=== PATIENT | male | born 1960 | race Caucasian/White ===

== ENCOUNTER 2018-04-11 22:28 | Inpatient (IN) | payer OTHER ==
[~2018-04-11] VITALS: Ht 170.2 cm; Wt 73.4 kg
[2018-04-11 22:51] VITALS: BP 139/99
[2018-04-11] MEDS ORDERED: METFORMIN HCL500 MG PO (22:56)
[2018-04-11] MEDS ORDERED: ARMOUR THYROID240 MG PO (22:56)
[2018-04-11] MEDS ORDERED: PLAVIX 75 MG TA75 M1 PO (22:56)
[2018-04-11] MEDS ORDERED: SAW PALMETTO450 MG PO (22:57)
[2018-04-11] MEDS ORDERED: COZAAR 25 MG TA25 M1 PO (22:57)
[2018-04-11] MEDS ORDERED: ATORVASTATIN CA40 MG PO (22:57)
[2018-04-11] MEDS ORDERED: LOPRESSOR50 PO (22:57)
[2018-04-11 23:19] LABS: ABSOLUTE BASOPHILS 0.1 thou/uL (0.0-0.2); ABSOLUTE LYMPHOCYTES 1.6 thou/uL (0.8-5.3); ABSOLUTE MONOCYTES 0.9 thou/uL (0.0-1.2); ABSOLUTE NEUTROPHILS 9.2 thou/uL (1.6-8.1); BASOPHILS 0.5 %; EOSINOPHILS 0.4 %; HEMATOCRIT 25.6 % (42.0-52.0); HEMOGLOBIN 8.9 gm/dL (14.0-18.0); LYMPHOCYTES 13.6 %; MCH 30.4 pg (26.0-34.0); MCHC 34.9 g/dL (28.0-37.0); MONOCYTES 7.7 %; NUCLEATED RBCS 0 /100WBC; PLATELET COUNT* 335 thou/uL (150-400); POLYS 77.8 %; RBC 2.94 mil/uL (4.50-6.00); RDW-CV 12.9 % (10.5-14.5); WBC 11.9 thou/uL (4.0-11.0)
[2018-04-11 23:23] LABS: CALCIUM 8.5 mg/dL (8.5-10.1); CREATININE 0.9 mg/dL (0.6-1.3); POTASSIUM 4.3 mmol/L (3.5-5.1)
[2018-04-11 23:28] LABS: ALBUMIN 3.4 g/dL (3.4-5.0); TOTAL BILIRUBIN 0.3 mg/dL (<0.1-1.0); TOTAL PROTEIN 6.4 g/dL (6.4-8.2)
[2018-04-12] VITALS (7 sets, daily range): BP systolic 117–140; BP diastolic 70–83
[2018-04-12 01:07] LABS: URINE BILIRUBIN NEGATIVE (Negative); URINE BLOOD NEGATIVE (Negative); URINE CLARITY CLEAR; URINE COLOR YELLOW; URINE GLUCOSE-RANDOM NEGATIVE (Negative); URINE KETONES NEGATIVE (Negative); URINE LEUKOCYTES-REFLEX NEGATIVE (Negative); URINE NITRITE-REFLEX NEGATIVE (Negative); URINE PROTEIN NEGATIVE (Negative); URINE SPECIFIC GRAVITY 1.015 (1.005-1.030); URINE UROBILINOGEN 0.2 E.U./dl (0.2-1.0)
[2018-04-12] MEDS ORDERED: VENTOLIN HFA 1818 GM INH (02:46)
[2018-04-12] MEDS ORDERED: ALLEGRA ALLERGY60 MG PO (02:51)
[2018-04-12] MEDS ORDERED: ASPIRIN EC325 MG PO (02:51)
--- NOTE | 2018-04-12 16:41 | EKG ---
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: ELAYNE : 1960 Requested By: Tina Kidd Order Number: [id number] MD: Kamron Anguiano Measurements Intervals [place] Rate: 120 P: -2 NE: 130 QRS: -27 QRSD: 87 T: 13 QT: 298 QTc: 421 Interpretive Statements Sinus tachycardia Abnormal R-wave progression, late transition Inferior infarct, old possible No previous ECG available for comparison Electronically Signed On 04-12-2018 16:41:34 CDT by Kamron Anguiano [email or web address] <ELECTRONICALLY SIGNED> By: Kamron Anguiano MD, [facility] 04/12/18 1641 [id number] 225 Kamron Anguiano MD, FAC /EPI
[2018-04-13] VITALS (8 sets, daily range): BP systolic 103–153; BP diastolic 55–83
[2018-04-13 04:26] LABS: ABSOLUTE EOSINOPHILS 0.2 thou/uL (0.0-0.7); ABSOLUTE LYMPHOCYTES 1.6 thou/uL (0.8-5.3); ABSOLUTE MONOCYTES 0.6 thou/uL (0.0-1.2); ABSOLUTE NEUTROPHILS 5.2 thou/uL (1.6-8.1); BASOPHILS 0.4 %; EOSINOPHILS 2.4 %; LYMPHOCYTES 20.6 %; MCH 30.7 pg (26.0-34.0); MCHC 34.7 g/dL (28.0-37.0); MCV 88.5 fL (80.0-100.0); MONOCYTES 8.1 %; MPV 6.6 fl. (7.2-11.1); NUCLEATED RBCS 1 /100WBC; POLYS 68.5 %; RBC 1.96 mil/uL (4.50-6.00); RDW-CV 13.6 % (10.5-14.5); WBC 7.6 thou/uL (4.0-11.0)
[2018-04-13 04:52] LABS: CALCIUM 7.4 mg/dL (8.5-10.1); CREATININE 0.8 mg/dL (0.6-1.3); POTASSIUM 4.3 mmol/L (3.5-5.1)
[2018-04-13 05:46] LABS: PLATELET COUNT* 228 thou/uL (150-400)
[2018-04-13 05:48] LABS: HEMATOCRIT 17.3 % (42.0-52.0)
[2018-04-13 15:16] LABS: HEMATOCRIT 21.7 % (42.0-52.0); HEMOGLOBIN 7.3 gm/dL (14.0-18.0)
[2018-04-14 05:13] VITALS: BP 120/76
[2018-04-14 05:34] LABS: ABSOLUTE BASOPHILS 0.1 thou/uL (0.0-0.2); ABSOLUTE EOSINOPHILS 0.2 thou/uL (0.0-0.7); ABSOLUTE LYMPHOCYTES 1.5 thou/uL (0.8-5.3); ABSOLUTE MONOCYTES 0.6 thou/uL (0.0-1.2); ABSOLUTE NEUTROPHILS 4.3 thou/uL (1.6-8.1); BASOPHILS 0.8 %; EOSINOPHILS 2.7 %; LYMPHOCYTES 23.3 %; MCHC 34.1 g/dL (28.0-37.0); MONOCYTES 8.5 %; MPV 6.8 fl. (7.2-11.1); NUCLEATED RBCS 0 /100WBC; PLATELET COUNT* 209 thou/uL (150-400); POLYS 64.7 %; RBC 2.27 mil/uL (4.50-6.00); WBC 6.6 thou/uL (4.0-11.0)
[2018-04-14 06:03] LABS: CALCIUM 7.7 mg/dL (8.5-10.1); CREATININE 0.9 mg/dL (0.6-1.3); POTASSIUM 4.2 mmol/L (3.5-5.1)
[2018-04-14 06:26] LABS: HEMOGLOBIN 6.8 gm/dL (14.0-18.0)
[2018-04-14 08:00] VITALS: BP 133/83
[2018-04-14 09:30] VITALS: BP 130/78; BP 138/83; BP 140/91; BP 141/92
[2018-04-14 15:22] LABS: HEMOGLOBIN 8.9 gm/dL (14.0-18.0)
[2018-04-14 16:00] VITALS: BP 130/73
[2018-04-14 20:30] VITALS: BP 119/72
[2018-04-15] VITALS: BP 112/65
[2018-04-15 04:00] VITALS: BP 129/71
[2018-04-15 05:10] LABS: ABSOLUTE EOSINOPHILS 0.2 thou/uL (0.0-0.7); ABSOLUTE LYMPHOCYTES 1.7 thou/uL (0.8-5.3); ABSOLUTE MONOCYTES 0.6 thou/uL (0.0-1.2); ABSOLUTE NEUTROPHILS 5.1 thou/uL (1.6-8.1); BASOPHILS 0.5 %; EOSINOPHILS 3.2 %; HEMATOCRIT 24.7 % (42.0-52.0); HEMOGLOBIN 8.4 gm/dL (14.0-18.0); LYMPHOCYTES 21.8 %; MCH 30.2 pg (26.0-34.0); MCV 88.9 fL (80.0-100.0); MONOCYTES 7.7 %; MPV 6.7 fl. (7.2-11.1); NUCLEATED RBCS 0 /100WBC; PLATELET COUNT* 210 thou/uL (150-400); POLYS 66.8 %; RBC 2.79 mil/uL (4.50-6.00); RDW-CV 14.4 % (10.5-14.5); WBC 7.6 thou/uL (4.0-11.0)
[2018-04-15 05:43] LABS: CALCIUM 7.9 mg/dL (8.5-10.1)
[2018-04-15 08:00] VITALS: BP 137/84
[2018-04-15 12:00] VITALS: BP 121/73
[2018-04-15 15:51] VITALS: BP 124/73
[2018-04-15 16:30] LABS: HEMATOCRIT 27.1 % (42.0-52.0); HEMOGLOBIN 9.5 gm/dL (14.0-18.0)
[2018-04-15 20:00] VITALS: BP 121/72
[2018-04-16] VITALS: BP 121/84; BP 181/84
[2018-04-16 04:00] VITALS: BP 135/72
[2018-04-16 05:02] LABS: HEMATOCRIT 25.3 % (42.0-52.0); HEMOGLOBIN 8.7 gm/dL (14.0-18.0)
[2018-04-16 08:01] VITALS: BP 128/76
[2018-04-16 10:11] VITALS: BP 128/76
--- NOTE | 2018-04-23 11:22 | CON ---
[address] [address] CONSULTATION Name: DAVEDUNAWAY W Room: [address] IN .R.#: [id number] Admission: 04/12/18 Attend Phys: Hanny Cheng Discharge: 04/16/18 Date of : 60 Report #: [id number] THIS REPORT FOR: //name// CC: MARGARITO physician/PCP Lane Nichole HISTORY OF PRESENT ILLNESS: This is a pleasant 57-year-old male with past medical history significant for hypertension, coronary artery disease and diabetes, who presents with one week of melena. The patient reports that he donated blood one week ago, Monday and following that, he began experiencing episodes of shortness of breath and dizziness. The patient reports that when he donated blood, the PRBCs were from the rest of the components and the rest were transfused back to him. He reports having dark-colored stools starting last intermittently over the course of the entire week. Over this week, the patient has also reported feeling progressively weak and short of breath, with one episode of near syncope 2 days back. This prompted his ER visit yesterday. The patient denies having an EGD in the past and denies taking any NSAIDs, apart from aspirin 325 mg for his coronary artery disease. The patient was also on Plavix as he had a coronary artery stent placed 4 years back. He denies similar episodes in the past. The patient had a colonoscopy performed in February of this year, which demonstrated one polyp. PAST MEDICAL HISTORY: As mentioned above, the patient has history of coronary artery disease, hypertension and diabetes. PAST SURGICAL HISTORY: The patient has had three shoulder surgeries and appendectomy more than 30 years back. FAMILY HISTORY: No family history of colon or gastric cancer. SOCIAL HISTORY: The patient denies smoking or recreational drug use. He does report intermittent alcohol use. REVIEW OF SYSTEMS: A comprehensive 10-point review of systems is negative, except for what was mentioned here. PHYSICAL EXAMINATION: VITAL SIGNS: Temperature 36.3, pulse rate 85, respirations 18, blood pressure 153/72 and pulse ox 100% on room air. GENERAL: The patient is alert, awake and oriented x 3. Mucous membranes are moist. NECK: There is no congestion. LUNGS: Clear to auscultation bilaterally. HEENT: Pupils are equal, round and reactive to light and accommodation. CARDIOVASCULAR EXAMINATION: Rate and rhythm regular. S1 and S2 present. ABDOMEN: Soft. There is no distention. No tenderness, guarding or rigidity. EXTREMITIES: Warm and well perfused. [place] [address] CONSULTATION Name: GUME ACOSTA Room: [address]#: [id number] Admission: 04/12/18 Attend Phys: Hanny Cheng Discharge: 04/16/18 Date of : 60 Report #: [id number] NEUROLOGIC: There are no focal neurological deficits. SKIN: Warm and dry. LABORATORY DATA: Hemoglobin 6.0, hematocrit 17.3. Sodium 141, potassium 4.3, chloride 109, bicarbonate 26, BUN 12 and creatinine 0.8. ASSESSMENT AND PLAN: This is a very pleasant 57-year-old male who is presenting with progressive weakness, dyspnea on exertion and intermittent melenic stool. We will proceed with upper GI endoscopy to rule out upper gastrointestinal hemorrhage. Further recommendations will be based on the above testing. <ELECTRONICALLY SIGNED> By: Harjeet Erwin MD 04/23/18 1122 1133 [id number] Erwin MD /nt
== END 2018-04-16 10:50 | disposition home or self-care (01) | DRG 378 ==
LOC: M.ERS 22:28 → M.TBA-ER 04-12 01:09 → M.2W 04-12 01:09
PROVIDERS: Internal Medicine; Internal Medicine Gastroenterology; Personal Emergency Response Attendant; ADMIT Internal Medicine
PROC: 0DJ08ZZ Inspection of Upper Intestinal Tract, Via Natural or Artificial Opening Endoscopic (ICD-10-PCS; principal; 2018-04-13)
PROC: 30233N1 Transfusion of Nonautologous Red Blood Cells into Peripheral Vein, Percutaneous Approach (ICD-10-PCS; principal; 2018-04-13)
PROC: 0DJD8ZZ Inspection of Lower Intestinal Tract, Via Natural or Artificial Opening Endoscopic (ICD-10-PCS; 2018-04-14)
DX: K92.2 Gastrointestinal hemorrhage, unspecified (principal); D62 Acute posthemorrhagic anemia; T45.515A Adverse effect of anticoagulants, initial encounter; K92.1 Melena; I10 Essential (primary) hypertension; I25.10 Atherosclerotic heart disease of native coronary artery without angina pectoris; J45.909 Unspecified asthma, uncomplicated; K64.9 Unspecified hemorrhoids; E11.9 Type 2 diabetes mellitus without complications; Z79.82 Long term (current) use of aspirin; Z95.5 Presence of coronary angioplasty implant and graft; Z79.899 Other long term (current) drug therapy; Z90.49 Acquired absence of other specified parts of digestive tract; Z79.84 Long term (current) use of oral hypoglycemic drugs